=== PATIENT | male | born 2000 | race Caucasian/White ===

== ENCOUNTER 2023-09-29 08:20 | Emergency (ER) | payer SELFPAY ==
[2023-09-29 08:23] VITALS: BP 123/63; PULSE 83; RESP 16; TEMP 36.5; O2SAT 99
[2023-09-29] MEDS: Lidocaine 2% Multi-Dose 50 ML VIAL (08:48)
--- NOTE | 2023-09-29 09:06 | W.ED.GENAD ---
Discharge Plan Disposition Patient Disposition: Home Discharge Details Clinical Impression: [place] injury to finger Primary Care Provider: Unknown,Unknown ED Provider: Tim Jacobs Home Meds and New Rx's Prescriptions: New cephalexin 500 mg tablet 500 mg PO QID 2 Days Qty: 8 0RF Continued insulin aspart U-100 [Novolog FlexPen U-100 Insulin] 100 UNIT/1 ML insulin pen 100 units SQ DAILY Qty: 15 1RF Rx Instructions: Use up to 100 units daily as directed for carb coverage/correction. insulin degludec [Tresiba FlexTouch U-200] 200 unit/mL (3 mL) insulin pen 20 unit subcut DAILY Discharge Instructions Instructions: Foreign Body in Skin ED Additional Instructions: Please monitor for signs of infection and return immediately if these occur. You have been placed upon 2 days of antibiotics to minimize chance of infection please take these as prescribed and for the full course of medication. You may use [id number] pain medication as needed for discomfort Keep wound clean and dry Referrals: Primary Care Provider [Outside] (As needed for reassessment) Discharge Data Discharge Date/Time-TO BE ENTERED AT DEPARTURE: 09/29/23 09:22 HPI General Mode of arrival: ambulatory. Date/Time Provider Initiated Documentation: 09/29/23 08:34. Limitations to Documentation: no limitations. Information obtained by: patient and RN notes reviewed. History of Present Illness 23 year old M presents to the emergency department with the chief complaint of [place] left index finger, described as mild, Patient started experiencing this hour(s) (<1) and it has been constant. No relieving factors improve symptom(s), No exacerbating factors reported . Patient notes no other symptoms.. Patient did receive the following treatments prior to arrival, none Related Data Home Medications ?Medication ?Instructions ?Recorded ?Confirmed insulin aspart U-100 100 unit/mL 100 units SQ DAILY #15 mL 10/24/17 09/29/23 (3 mL) subcutaneous pen (Novolog FlexPen U-100 Insulin aspart) cephalexin 500 mg tablet 500 mg PO QID 2 days #8 tabs 09/29/23 insulin degludec 200 unit/mL (3 20 unit subcut DAILY 09/29/23 09/29/23 mL) subcutaneous pen (Tresiba FlexTouch U-200 insulin) Previous Rx's ?Medication ?Instructions ?Recorded insulin aspart U-100 100 unit/mL 100 units SQ DAILY #15 mL 10/24/17 (3 mL) subcutaneous pen (Novolog FlexPen U-100 Insulin aspart) cephalexin 500 mg tablet 500 mg PO QID 2 days #8 tabs 09/29/23 Allergies Allergy/AdvReac Type Severity Reaction Status Date / Time gluten Allergy Mild DIARRHEA Unverified 09/29/23 08:26 No Known Drug Allergies Allergy none Unverified 09/29/23 08:26 General Stated Complaint: ForeignBody HERMES: 4 Review of Systems Integumentary/Breasts Skin/Breast: Reports as per HPI and Reports wounds Neurologic Neurologic: Denies paresthesias Exam Const General: cooperative, no acute distress and not ill appearing Orientation: alert, awake and oriented x3 HENMT Mouth: moist mucous membranes Resp Effort & Inspection: normal respiratory effort, able to speak in complete sentences and no respiratory distress Skin General skin exam: no rashes or lesions noted Neuro General: patient alert, patient awake, patient oriented x3, moves all extremities and no focal motor deficits Sensory Exam: no sensory deficits noted Extrem General: normal exam except as noted Right upper extremity: hand Details: normal capillary refill, neuromotor exam normal, neurosensory exam normal and foreign body Location: of the 2nd digit Location: at the distal phalanx (Ulnar aspect adjacent to fingernail present fishhook) Course Vital Signs Vital signs: Vital Signs Temperature 36.5 C 09/29/23 08:23 Pulse 83 09/29/23 08:23 Respiratory Rate 16 09/29/23 08:23 Blood Pressure 123/63 09/29/23 08:23 Pulse Oximetry 99 09/29/23 08:23 Temperature 36.5 C 09/29/23 08:23 Temperature Source Skin 09/29/23 08:23 Pulse 83 09/29/23 08:23 Respiratory Rate 16 09/29/23 08:23 Respiratory Effort Normal, Non-Labored 09/29/23 08:27 Respiratory Pattern Normal 09/29/23 08:27 Blood Pressure 123/63 09/29/23 08:23 Blood Pressure Position Sitting 09/29/23 08:23 Pulse Oximetry 99 09/29/23 08:23 Oxygen Delivery Method Room Air 09/29/23 08:23 Oxygen Flow Rate 0 09/29/23 08:23 Procedures Foreign Body Removal Time Out Performed: yes Site: left and hand (Index finger) Description of foreign body: fish hook Sedation/Analgesia: other (3 mL 2% lidocaine-digital block and local injection) Technique: removal with forceps Confirmed by:: direct visualization Complications: none Neurovascular: normal capillary fill, distal light touch sensation intact and distal motor function normal Medical Decision Making Patient presenting to the emergency department for chief complaint of fishhook injury to left index finger. Patient denies any other injury or trauma. Patient does have past medical history of diabetes. Patient is up-to-date on tetanus. Physical exam shows fishhook in left index finger on the ulnar aspect. Digital block was performed with 2% lidocaine and fishhook was able to be removed manually. Patient tolerated procedure well no complications noted. Given that patient is a diabetic we will place patient on 2 days of Keflex and have patient monitor for any signs of infection otherwise. After discussion of diagnosis and plan of care patient has no further needs, questions, or concerns and states clear understanding to return to the emergency department for any worsening symptoms. This documentation was generated using [employer] dictation system, please disregard any oddities of phrase or misspellings. Quality:SDOH Health Related Social Needs: No Data to Display PFSH All Active Problems (Updated 09/29/23 @ 15:17 by Tim Jacobs NP) Diabetes mellitus type 1 (Acute 05/26/12) Poor control 04/19 with HgA1C 9.2 CD (celiac disease) (Acute 02/04/15) [place] injury to finger (Acute) Surgical History Fracture, Open Treatment pinning of left elbow fracture at age 1, followed by removal of pins Family History Father Diabetes Social History Smoking/Tobacco Use Status: Never Smoking risk assessment performed?: Yes Alcohol Intake: never Drug use: Never Housing: house Do you feel safe at home: Yes Do you feel safe in your relationship?: Yes
== END 2023-09-29 09:22 | disposition home or self-care (01) ==
LOC: ER 09:22
PROVIDERS: Emergency Provider Nurse Practitioner Family
DX: S60.451A Superficial foreign body of left index finger, initial encounter (principal); Z18.10 Retained metal fragments, unspecified; Y93.19 Activity, other involving water and watercraft
CPT/HCPCS: 64450; 99283; J2003